=== PATIENT | male | born 1970 | race Caucasian/White ===

== ENCOUNTER 2021-12-03 12:43 | Emergency (ER) | payer OTHER, SELFPAY ==
--- NOTE | 2021-12-03 12:46 | ED.EYEPROB ---
HPI - Eye Problem General Chief complaint: Eye Problems Stated complaint: right eye Time Seen by Provider: 12/03/21 12:47 Source: patient and RN notes reviewed History of Present Illness HPI Narrative: Patient is a 51-year-old male who presents the urgent care with complaints of right eye swelling and pain for the last 2 days. Patient states that he assumed it was just a stye to the right lower eyelid and his physician prescribed him Keflex and polymyxin. Patient states he started the polymyxin yesterday and 1 dose of Keflex this morning. States that he now has right upper eyelid swelling and pain. Patient reports of clear to yellow drainage. Denies of any vision changes, trauma or injury. No other acute complaints. No acute distress noted. Patient aware of the plan of care. Some parts of this dictation were generated by voice recognition software and may contain typographical and/or grammatical inaccuracies. Related Data Allergies Allergy/AdvReac Type Severity Reaction Status Date / Time Penicillins Allergy Rash Verified 12/03/21 13:01 Review of Systems Review of Systems: CONSTITUTIONAL: Denies fever, chills, or sweats. EYES: Reports of left eye redness and swelling to the upper and lower eyelid ENT: Denies rhinorrhea, congestion, sore throat, or otalgia. CARDIOVASCULAR: Denies chest pain, palpitations, or edema. RESPIRATORY: Denies cough or dyspnea. GASTROINTESTINAL: Denies abdominal pain, nausea, vomiting, or diarrhea. GENITOURINARY: Denies dysuria or hematuria. SKIN: Denies rash or itching. MUSCULOSKELETAL: Denies back pain, joint pain, or myalgia. NEUROLOGIC: Denies headache, numbness, or weakness. All other systems reviewed are negative, except as documented in HPI. PMFSH Comments At the time of my signature, I reviewed and agree with the nursing past medical, surgical, social, and family history. There is no relevant family history pertinent to the patient complaint. Exam Narrative: GENERAL: This is a well-nourished, well-developed patient, in no apparent distress. HEAD: normocephalic, atraumatic. EYES: PERRL. Sclera clear/white. Vision is grossly intact. Moderate injected left conjunctive a with moderate upper right eyelid swelling/erythema with likely impetigo to the inner canthus of the right eye. Internal hordeolum to the right lower eyelid. Clear drainage EARS: External ears normal NOSE: External nose normal with no obvious nasal discharge, nares without redness, no rhinorrhea. THROAT: Mucous membranes moist NECK: Neck supple CARDIOVASCULAR: Regular rate and rhythm without murmurs, gallops, or rubs. RESPIRATORY: Clear to auscultation. Breath sounds equal bilaterally. No wheezes, rales, or rhonchi. SKIN: warm, intact with no suspicious lesions or rash, good texture and turgor. NEURO: awake, alert, and oriented to person, place and time. There were no obvious focal neurologic abnormalities. EXTREMITIES: No clubbing, cyanosis, or edema. Course Course Level of Care: Express Care Visit Vital Signs Vital signs: Vital Signs Temperature 98.8 F 12/03/21 12:49 Pulse Rate 79 12/03/21 12:49 Respiratory Rate 18 12/03/21 12:49 Blood Pressure 136/69 12/03/21 12:49 Pulse Oximetry 98 12/03/21 12:49 Temperature 98.8 F 12/03/21 12:49 Pulse Rate 79 12/03/21 12:49 Respiratory Rate 18 12/03/21 12:49 Blood Pressure 136/69 12/03/21 12:49 Pulse Oximetry 98 12/03/21 12:49 Reviewed MDM - Eye Problem MDM Narrative Medical decision making narrative: Advised the patient to stop the Keflex and polymyxin eyedrops. Continue the warm or cool compress as needed but make sure you are using a wash rag with each application. Use the new eyedrop to the right eye as directed, wiping the applicator tip after each application. Start and complete the new oral antibiotic, clindamycin as directed. Be sure to eat and drink with the medication. If you develop any increase in swelling associated with fever,
[2021-12-03 12:49] VITALS: BP 136/69; PULSE 79; RESP 18; TEMP 37.1; O2SAT 98
== END 2021-12-03 13:12 | disposition home or self-care (01) ==
PROVIDERS: Emergency Provider Nurse Practitioner Family
DX: L03.213 Periorbital cellulitis (principal)
CPT/HCPCS: 99213; G0463